=== PATIENT | female | born 1990 | race Caucasian/White ===

== ENCOUNTER 2016-11-10 00:09 | Emergency (ER) | payer OTHER ==
[~2016-11-10] VITALS: Ht 154.9 cm; Wt 44.5 kg
[2016-11-10 00:24] VITALS: BP 107/56
--- NOTE | 2016-11-10 00:31 | NUR ---
AMBULATED TO ER OF2
--- NOTE | 2016-11-10 00:45 | NUR ---
26Y/F PT. BIB MOTHER TO ED FOR MEDICATION REFILL. PT. HX. SEIZURE. AAO X4, AMBULATORY WITH ATEDAY GAIT. NO S/SX OF DISTRESS AT THIS TIME. ER MD MADE AWAR EOF PT STATUS.
--- NOTE | 2016-11-10 01:05 | NUR ---
Patient discharged with v/s stable. Written and verbal after care instructions given and explained. Patient alert, oriented and verbalized understanding of instructions. Ambulatory with steady gait. All questions addressed prior to discharge. ID band removed. Patient advised to follow up with PMD. Rx of ZONISAMIDE 100 MG given. Patient educated on indication of medication including possible reaction and side effects. Opportunity to ask questions provided and answered.
[2016-11-10 01:22] VITALS: BP 107/56
== END 2016-11-10 01:05 | disposition home or self-care (01) ==
LOC: MED 00:09
DX: Z76.0 Encounter for issue of repeat prescription (principal); G40.909 Epilepsy, unspecified, not intractable, without status epilepticus
CPT/HCPCS: 99283